=== PATIENT | male | born 1975 | race Caucasian/White ===

== ENCOUNTER 2018-08-02 03:51 | Emergency (ER) | payer MEDICAID, SELFPAY ==
[2018-08-02 03:52] VITALS: BP 155/111; PULSE 84; RESP 18; TEMP 36.7; O2SAT 97; BMI 32.0
--- NOTE | 2018-08-02 05:00 | ED.DCSUM_ITS ---
History of Present Illness Chief Complaint: Rash Informant: Patient Narrative: Skin rash per patient has been on and off for the last year. He has been using antihistamines. He seen his doctor for it. Initially he was told it was ringworm on his scalp. He states is diffuse on his body. Your medication did not help him. It is itching. He is noticed some worsening bumps on his face after shaving. 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 Current severity is mild. He has never been on steroids for this. Nothing makes it better. No exposures that he could think of. Past Medical History - Allergies and Home Meds Allergies/Adverse Reactions: Allergies No Known Allergies Allergy (Verified 08/02/18 03:51) Primary Care Physician: Care Physician,No Primary [Primary Care Provider] - Prior records reviewed: Yes Past Medical History: - - Denies Surgical History: - - Reviewed Smoking Status: Current every day smoker Alcohol: None Drugs: None Review of Systems General: Denies: Chills, Fever, Sweats Eyes: Denies: Visual changes - bilaterally, Diplopia ENT: Denies: Rhinorrhea, Sore throat Cardiovascular: Denies: Chest pain, Palpitations Respiratory: Denies: Dyspnea, Cough, Dyspnea on exertion Gastrointestinal: Denies: Abdominal pain, Nausea, Vomiting, Diarrhea, Melena, Hematochezia Genitourinary: Denies: Dysuria, Hematuria, Frequency Musculoskeletal: Denies: Back pain, Extremity Pain Skin: Reports: Rash. Denies: Wounds Neurological: Denies: Headache, Weakness, Numbness Physical Exam Vital Signs/Narrative: Vital Signs Temp Pulse Resp BP Pulse Ox 08/02/18 03:52 98.0 F 84 18 155/111 H 97 General: Well nourished, Well developed, No Acute Distress Head: Normocephalic, Atraumatic Eyes: Perrl, EOMI ENT: Moist mucous membranes, No rhinorrhea Neck: Supple, Nontender Cardiovascular: Regular rate, Regular rhythm, No murmurs Respiratory: No distress, CTA bilaterally, Chest nontender Abdomen: Soft, Nontender, Nondistended, Normal bowel sounds Back: Nontender, Normal Inspection Extremities: Nontender, No edema Skin: Normal color, - - Patient has mild raised bump inflammation to his goatee region. Patient has areas of excoriation on his arms legs buttock and groin.. Negative for: No rash Neurological: Alert, Oriented x3, Cranial nerves II-XII grossly intact, Normal Strength, Normal Sensation Psychological: Normal affect, Normal Mood Diagnostic/Tx/Re-eval - Medical Decision Making Patient has a nonspecific dermatitis. Given injection of Kenalog. I do not think he has scabies. Will be given a prescription for mometasone cream to use. Understands that Kenalog has a delayed effect. He will follow-up as an outpatient. ED Disposition - Plan for ED Patient: Disposition: [facility] Diagnosis: Dermatitis Instructions: Self-Care for Skin Rashes Prescriptions: Mometasone Furoate 45 gm TP BID 10 Days #1 cream..g. Referrals: Reynold Tran DO [NON CLINICAL AFFILIATE] -
[2018-08-02] MEDS: Triamcinolone Acetonide 40 MG/ML Vial 80 MG IM (05:15)
== END 2018-08-02 05:19 | disposition home or self-care (01) ==
PROVIDERS: Emergency Provider Emergency Medicine
DX: L30.9 Dermatitis, unspecified (principal); F17.200 Nicotine dependence, unspecified, uncomplicated
CPT/HCPCS: 96372; 99283

== ENCOUNTER 2019-02-20 21:03 | Emergency (ER) | payer MEDICAID, SELFPAY ==
[2019-02-20 21:03] VITALS: PULSE 72; RESP 14; TEMP 36.6; O2SAT 95; BMI 30.8
[2019-02-20] MEDS: 0.9% Normal Saline 1,000 ML 1000 ML IV (21:05)
[2019-02-20] MEDS: Succinylcholine Chloride 200 MG/10 ML Vial 150 MG IV (21:12)
[2019-02-20 21:15] VITALS: BP 243/157; PULSE 85; RESP 29; O2SAT 100
[2019-02-20] MEDS: Propofol 10MG/Ml 1,000 MG/100 ML Bottle 6.5 MG CONT INF (21:19)
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
[2019-02-20] MEDS: Rocuronium Bromide 50 MG/5 ML Vial 110 MG IV (21:23)
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
[2019-02-20] MEDS: Cefazolin 1 GM/50 ML BAG IV (21:37)
[2019-02-20] MEDS: Diphth,Pertuss(Acell),Tet Vac 0.5 ML Vial IM (21:38)
[2019-02-20 21:40] LABS: Absolute Lymphocyte Count 2.78 X10^3/uL (0.83-4.51); Basophil# 0.12 X10^3/uL; Basophil% 1.2 % (0-1); Eosinophil# 0.16 X10^3/uL; Eosinophils% 1.6 % (0-5); Hematocrit 47.4 % (40-54); Hemoglobin 16.5 g/dL (13.0-16.5); Lymphocyte # 2.78 X10^3/ul (4.0); Lymphocyte % 27.5 % (19-41); Mean Corp Hgb Conc 34.8 g/dL (32-36); Mean Corpuscular Hgb 31.3 pg (27.0-32.0); Mean Corpuscular Volume 89.9 fL (80-94); Mean Platelet Vol. 10.9 fl (6.2-12.0); Monocyte# 0.96 X10^3/uL; Monocyte% 9.5 % (0-10); NRBC Flagged by Analyzer 0 % (0-5); Neutrophil # 6.04 X10^3/uL (2.7-7.7); Neutrophil % 59.8 % (47-70); Platelet Count 297 K/mm3 (150-450); RBC Distribution Width CV 11.8 % (11.6-14.6); RBC Distribution Width SD 38.2 fl (35.1-43.9); Red Blood Count 5.27 M/mm3 (4.6-6.2); White Blood Count 10.1 K/mm3 (4.4-11.0)
[2019-02-20 21:44] LABS: Partial Thromboplast Time 25.5 Seconds (24.1-36.2); Prothrombin Time (Protime)PT. 13.1 SECONDS (11.7-14.9)
--- NOTE | 2019-02-20 21:46 | ED.RN ---
[facility] AT BEDSIDE, REPORT GIVEN. CARE ASSUMED BY THEIR TEAM
[2019-02-20 21:47] VITALS: BP 218/140; PULSE 82; RESP 18; O2SAT 100
[2019-02-20 21:48] LABS: ALB/GLOB Ratio 1.2 RATIO (0.9-2.4); AST(SGOT) 27 U/L (15-37); Alanine Aminotransfer ALT/SGPT 47 U/L (16-61); Alkaline Phosphatase 97 U/L (45-117); Anion Gap 8 (5-15); BUN 15 mg/dL (7-18); Calcium,Total 8.6 mg/dL (8.5-10.1); Chloride 106 mmol/L (98-107); Creatinine, Serum 1.25 mg/dL (0.70-1.30); EST Glomerular Filtration Rate 67 mL/min (>60); Est Glom Filt Rate - Afr Amer 81 mL/min (>60); Estimated Creatinine Clearance 89.51 ml/min; Globulin 3.3 g/dL (2.2-4.2); Glucose 138 mg/dL (74-106); Potassium 3.4 mmol/L (3.5-5.1); Protein, Total 7.3 g/dL (6.4-8.2); Sodium Level 141 mmol/L (136-145)
--- NOTE | 2019-02-20 21:52 | ED.RN ---
BOTTLE OF PROPOFOL PULLED FOR TRANSPORT.
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
--- NOTE | 2019-02-20 22:00 | ED.RN ---
PT DEPARTS WITH [facility] AT THIS TIME
--- NOTE | 2019-02-20 22:15 | ED.RN ---
report called to Carolina CALI at [facility] ED.
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
== END 2019-02-20 22:00 | disposition short-term general hospital (02) ==
PROVIDERS: Emergency Provider Emergency Medicine
DX: S11.90XA Unspecified open wound of unspecified part of neck, initial encounter (principal); W34.00XA Accidental discharge from unspecified firearms or gun, initial encounter; Y93.9 Activity, unspecified; Y92.9 Unspecified place or not applicable; Z72.0 Tobacco use
CPT/HCPCS: 31500; 51702; 70360; 71045; 80053; 85025; 85610; 85730; 90715; 96365; 96368; 99251; 99285; J7030; A4216; G0463; J0330

== ENCOUNTER 2022-09-16 18:45 | Emergency (ER) | payer MEDICAID, SELFPAY ==
[2022-09-16 18:47] VITALS: BP 166/100; PULSE 78; RESP 18; TEMP 37.2; O2SAT 99; BMI 32.1
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
[2022-09-16] MEDS: Ibuprofen 600 MG Tablet PO (21:52)
[2022-09-16] MEDS: Doxycycline 100 MG CAPSULE PO (21:52)
== END 2022-09-16 21:57 | disposition home or self-care (01) ==
PROVIDERS: Emergency Provider Emergency Medicine; Visit Provider Emergency Medicine
DX: L02.611 Cutaneous abscess of right foot (principal); F17.210 Nicotine dependence, cigarettes, uncomplicated; L02.413 Cutaneous abscess of right upper limb; L02.811 Cutaneous abscess of head [any part, except face]
CPT/HCPCS: 10061; 10060; 99283